=== PATIENT | female | born 1995 | race Caucasian/White ===

== ENCOUNTER 2021-12-14 16:55 | Emergency (ER) | payer MEDICAID ==
[~2021-12-14] VITALS: Ht 165.1 cm; Wt 113.4 kg
[2021-12-14 17:00] VITALS: BP_SYST 133
[2021-12-14] MEDS ORDERED: TETRACAINE HCL/PF 0.5% OPHTHALMIC DROPS 4 ML OP ONE (17:15)
[2021-12-14] MEDS ORDERED: SULF5DRO RIGHT EYE (17:38)
[2021-12-14 17:44] VITALS: BP_SYST 133
== END 2021-12-14 17:45 | disposition home or self-care (01) ==
LOC: SED 16:55
DX: H11.31 Conjunctival hemorrhage, right eye (principal); Z79.899 Other long term (current) drug therapy
CPT/HCPCS: 99283